=== PATIENT | male | born 1960 | race Caucasian/White ===

== ENCOUNTER 2017-03-10 15:12 | Inpatient (IN) ==
--- NOTE | 2017-03-10 15:19 | Emergency Department Note ---
Disposition Clinical Impression: Defibrillator discharge Disposition: Admitted As Inpatient Condition: Good Time of Disposition: 15:30 Arrhythmia/Palpitations HPI - General Chief Complaint: ED Arrhythmia/Palpitations Stated Complaint: defib fired Time Seen by Provider: 03/10/17 15:16 Source: patient, EMS Mode of arrival: EMS Limitations: no limitations Nursing Notes Reviewed: Yes Vital Signs Reviewed: Yes - History of Present Illness HPI Narrative: Patient is a 57-year-old male with past medical history of A. fib and currently on warfarin, CHF, COPD, diabetes, hypertension. He has a pacemaker defibrillator placed for A. fib. This was placed 8 years ago, [employer]. He presents today via EMS due to being shocked by his defibrillator around noon, approximately 3 hours prior to arrival. He states that the device played tones prior to being shocked. He said that just prior to arrival, the defibrillator played the same tones but did not shock him the second time. Denies any chest pain or shortness of breath prior to or after the event. Denies any other nausea, vomiting, fevers, diarrhea, abdominal pain. Currently asymptomatic. He was told in the past that if his defib played these tones, the battery was getting low. - Related Data Home Medications Medication Instructions Recorded Confirmed Albuterol Sulfate [Albuterol 2 puff IH Q6HR 02/11/15 03/11/15 Inhaler] Carvedilol [Coreg] 6.25 mg PO BIDWM 02/11/15 03/11/15 Digoxin [Lanoxin] 0.25 mg PO DAILY 02/11/15 03/11/15 Fenofibrate 145 mg DAILY 02/11/15 03/11/15 HYDROcodone/Acet 7.5/325 mg [Hunker 1 tab QID PRN 02/11/15 03/11/15 7.5-325 mg] Lisinopril [Zestril] 20 mg PO DAILY 02/11/15 03/11/15 Metformin HCl [Glucophage Xr] 750 mg PO DAILY 02/11/15 03/11/15 Montelukast [Singulair] 10 mg PO DAILY 02/11/15 03/11/15 QVAR 80 mcg 1 puff BID 02/11/15 03/11/15 Warfarin [Coumadin] 2 mg PO 1800 02/11/15 03/11/15 Previous Rx's Medication Instructions Recorded OxyCODONE/APAP 10/325 [Percocet 1 each PO Q6HR PRN #36 tablet 03/11/15 10/325 MG] Allergies Allergy/AdvReac Type Severity Reaction Status Date / Time atorvastatin [From Lipitor] AdvReac Vomiting Verified 03/10/17 15:18 codeine AdvReac Itching Verified 03/10/17 15:18 All systems ED: reviewed and negative except as stated. Constitutional: Denies: fever Cardiovascular: Denies: chest pain, palpitations Respiratory: Denies: cough, dyspnea Gastrointestinal: Denies: abdominal pain, nausea, vomiting, diarrhea, constipation, hematemesis, melena, hematochezia Genitourinary: Denies: dysuria Neurological: Denies: weakness, numbness, paresthesias Past Medical History - Past Medical History Attestation: Yes The following information was validated with the patient. Source: patient Medical history: Reports: asthma, atrial fibrillation, cardiomyopathy, CHF, hyperlipidemia, hypertension, myocardial infarction Surgical history: Reports: pacemaker/AICD Psychiatric history: Reports: no psych history - Social History Smoking Status: Former smoker Smokeless Tobacco Status: No Alcohol use: Reports: rarely Drug use: Reports: none Physical Exam - General Limitations: no limitations General appearance: alert, in no apparent distress - Head Head exam: atraumatic, normocephalic, normal inspection - Eye Eye exam: Present: normal appearance, PERRL, EOMI - ENT ENT exam: normal exam, normal oropharynx, mucous membranes moist - Neck Neck exam: Present: normal inspection, full ROM, trachea midline - Chest Chest inspection: Present: normal inspection, symmetric chest wall rise, other ( pacer/defib in chest has no overlying erythema, edema) - Respiratory Respiratory exam: Present: normal lung sounds bilaterally - Cardiovascular Cardiovascular exam: Present: regular rate, normal rhythm, normal heart sounds - Abdominal Exam Abdominal exam: Present: soft, Non-Tender. Absent: tenderness, distention, guarding, rebound, rigidity - Extremities Exam Extremities exam: Present: normal inspection, full ROM. Absent: tenderness, pedal edema - Neurological Exam Neurological exam: Present: alert, oriented X3 - Psychiatric Psychiatric exam: Present: normal affect, normal mood - Skin Skin exam: Present: warm, dry, intact, normal color Course Course Narrative: Patient hypertensive but otherwise vitals were within normal limits. Patient is currently in A. fib. He states that he is always in A. fib. His pacer/ defibrillator fired once prior to arrival while brushing his teeth. No symptoms prior to or after the event. We will obtain EKG, chest x-ray, basic blood work including CBC and BMP. Troponin not ordered due to likely false elevation from defibrillation shock. Again, patient is currently asymptomatic. We will interrogate the pacer/defibrillator while waiting on labs. 15:55 CBC shows hemoglobin within normal limits, mild elevation white blood cell count. Chest x-ray negative for any acute abnormality, leads appear to be in proper placement. EKG showed A. fib with no acute ST changes from previous EKG. 16:08 No major electrolyte abnormality on BMP. Interrogation rrt called me and discussed the report. There was one reported episode of V. fib/V. tach. However, the employee that I spoke with at [employer] states that according to some of the impedance readings that there could possibly be a fracture of one of the leads inside insulation itself. She did not feel that from the information obtained that there was an overt fracture of the entire lead. Chest x-ray shows no obvious fractures of leads. And they recommended that we place a magnet over the device to inactivated. I spoke with cardiology, Dr. Bhatti, and he requested one troponin ordered in the ER today and then an additional troponin order tomorrow. He did recommend admission to hospitalist with cardiology as a consult. No other recommendations made at this time. Vital Signs Temperature 98.3 F 03/10/17 15:15 Pulse Rate 84 03/10/17 15:15 Respiratory Rate 18 03/10/17 15:15 Blood Pressure 160/100 03/10/17 15:15 O2 Sat by Pulse Oximetry 96 03/10/17 15:15 Temperature 98.0 F 03/10/17 18:36 Pulse Rate 85 03/10/17 18:36 Respiratory Rate 18 03/10/17 18:36 Blood Pressure 140/91 03/10/17 18:36 O2 Sat by Pulse Oximetry 96 03/10/17 18:36 Oxygen Delivery Oxygen Delivery Room Air Arrhythmia/Palpitations - MDM Narrative Medical decision making narrative: CBC shows hemoglobin within normal limits, mild elevation white blood cell count. Chest x-ray negative for any acute abnormality, leads appear to be in proper placement. EKG showed A. fib with no acute ST changes from previous EKG. No major electrolyte abnormality on BMP. Interrogation rrt called me and discussed the report. There was one reported episode of V. fib/V. tach. However, the employee that I spoke with at [employer] states that according to some of the impedance readings that there could possibly be a fracture of one of the leads inside insulation itself. She did not feel that from the information obtained that there was an overt fracture of the entire lead. Chest x-ray shows no obvious fractures of leads. And they recommended that we place a magnet over the device to inactivated. I spoke with cardiology, Dr. Bhatti, and he requested one troponin ordered in the ER today and then an additional troponin order tomorrow. He did recommend admission to hospitalist with cardiology as a consult. No other recommendations made at this time. - Medical Records Medical records reviewed: Yes I reviewed the patient's medical records. - Lab Data Lab results reviewed: Yes I reviewed the patient's lab results. Result diagrams: 03/10/17 15:30 03/10/17 15:30 Lab Results 03/10/17 03/10/17 03/10/17 Range/Units 15:30 15:30 15:30 WBC 13.1 H (4.3-11.1) K/mcL RBC 5.90 H (4.19-5.50) M/mcL Hgb 16.3 (12.9-16.9) g/dL Hct 51.5 H (37.5-50.1) % MCV 87.3 (83.0-100.0) fL MCH 27.6 L (28.0-33.3) pg MCHC 31.7 (31.6-35.5) g/dL RDW 13.5 (11.5-14.5) % Plt Count 270 (140-400) K/mcL MPV 9.8 (9.4-12.4) fL Immature Gran % 0.5 (0-4) % Seg Neutrophils % 76.9 % Lymphocytes % 12.6 % Monocytes % 6.0 % Eosinophils % 3.6 % Basophils % 0.4 % Neutrophils # 10.1 H (1.6-8.9) K/mcL Lymphocytes # 1.7 (0.6-4.6) K/mcL Monocytes # 0.8 (0.0-1.3) K/mcL Eosinophils # 0.5 (0.0-0.6) K/mcL Basophils # 0.1 (0.0-0.2) K/mcL Sodium 134 L (136-145) mEq/L Potassium 4.7 (3.5-5.1) mEq/L Chloride 99 (98-107) mEq/L Carbon Dioxide 29 (23-29) mEq/L BUN 26 H (6-20) mg/dL Creatinine 1.01 (0.70-1.30) mg/dL Est GFR ( Amer) > 60 (> 60) Est GFR (Non-Af Amer) > 60 (> 60) BUN/Creatinine Ratio 26 (6-26) Glucose 110 H (70-105) mg/dL Calculated Osmolality 283 (280-300) Calcium 9.8 (8.6-10.3) mg/dL Troponin I 0.03 (< 0.04) ng/mL - Radiology Data Radiology results reviewed: Yes I reviewed the patient's radiology results. Chest X-Ray 03/10/17 15:18 IMPRESSION: No acute abnormality. D/ / 03/10/2017 16:04:46 Bruce Gordon MD / [facility] Interpreting Provider: Bruce Gordon MD - EKG Data EKG attestation: Yes I reviewed and interpreted this EKG. EKG results narrative: 03/10/17 at 15:17. A. fib. Rate 76. [place] 210. QRS 147. QTC 403. No acute ST changes compared to previous EKG on 01/01/15 S.B.A.R. - S.B.A.R. Situation: Demographics, MOA Background: Presenting Complaint, Relevant PMH, Meds, & Allergies Assessment: Vital Signs, Course and respsone to treatment, Exam Concerns, Patient/Family Expectation, Pertinant Lab Results, Outstanding Labs Recommendation: Barrier(s) to disposition, Recommendation based on pending studies, treatments, or consults S.B.A.R. Report Given to: Dr. Camryn Morales Repor Time: 16:54 Attestation Statement - Attestation Attestation: I examined this patient and my medical decision-making was reviewed with the Resident Physician. I agree with the documented findings, disposition and treatment plan as described except to the extent set forth below. Findings consistent with pacemaker failure. The patient describes a pacemaker firing at home. There is concern for lead fracture. Discussed case with on-call rotary cutter feeder. Recommending placing magnet over pacer, admitting for telemetry and pacemaker replacement.
[2017-03-10 15:37] LABS: Basophils # 0.1 K/mcL (0.0-0.2); Basophils % 0.4 %; Eosinophils # 0.5 K/mcL (0.0-0.6); Eosinophils % 3.6 %; Hematocrit 51.5 % (37.5-50.1); Hemoglobin 16.3 g/dL (12.9-16.9); Immature Granulocytes % 0.5 % (0-4); Lymphocytes # 1.7 K/mcL (0.6-4.6); Lymphocytes % 12.6 %; Mean Corpuscular HGB Conc 31.7 g/dL (31.6-35.5); Mean Corpuscular Hemoglobin 27.6 pg (28.0-33.3); Mean Corpuscular Volume 87.3 fL (83.0-100.0); Mean Platelet Volume 9.8 fL (9.4-12.4); Monocytes # 0.8 K/mcL (0.0-1.3); Neutrophils # 10.1 K/mcL (1.6-8.9); Platelet Count 270 K/mcL (140-400); Red Cell Distribution Width 13.5 % (11.5-14.5); Segmented Neutrophils % 76.9 %
[2017-03-10 15:58] LABS: BUN/Creatinine Ratio 26 (6-26); Blood Urea Nitrogen 26 mg/dL (6-20); Calcium 9.8 mg/dL (8.6-10.3); Carbon Dioxide 29 mEq/L (23-29); Chloride 99 mEq/L (98-107); Glucose 110 mg/dL (70-105); Osmolality,Calculated 283 (280-300); Potassium 4.7 mEq/L (3.5-5.1); Sodium 134 mEq/L (136-145); eGFR For African Americans > 60 (> 60); eGFR For Non-African Americans > 60 (> 60)
[2017-03-10] MEDS ORDERED: Naloxone 0.4 MG/ML INJ IVP PRN (17:39)
[2017-03-10] MEDS ORDERED: Acetaminophen 325 MG TABLET PO PRN (17:39)
--- NOTE | 2017-03-10 17:50 | Internal Med History&Physical ---
Date of Encounter: 03/10/17 Time of Encounter: 17:45 Assessment and Plan (1) Defibrillator discharge Current visit: Yes Status: Acute One episode prior to arrival Monitor on tele Cardiology eval a.m Check Mag, repeat troponin No chest pain at this time and prior to presentation. Obtain ECHO Patient is full code (2) HTN (hypertension) Current visit: Yes Status: Chronic Uncontrolled at time of presentation resume home meds Ad hydralazine prn SBP >160 Qualifiers: Hypertension type: essential hypertension Qualified Code(s): I10 - Essential (primary) hypertension (3) Afib Current visit: Yes Status: Chronic chronic, with ICD On Warfarin, digoxin check digoixn level, INR Continue home meds Hold Warfarin for possible procedure, place on heparin Qualifiers: Atrial fibrillation type: chronic Qualified Code(s): I48.2 - Chronic atrial fibrillation (4) Diabetes mellitus Current visit: Yes Status: Chronic FS ACHS Sliding scale insulin ADA diet Qualifiers: Diabetes mellitus type: type 2 Diabetes mellitus complication status: without complication Diabetes mellitus detention insulin use: without detention use Qualified Code(s): E11.9 - Type 2 diabetes mellitus without complications (5) Hx of polymyalgia rheumatica Current visit: Yes Status: Chronic continue home meds supposedly on steroids intermittently not on steroids per home meds at this time (6) Leukocytosis Current visit: Yes Status: Chronic chronic, has been seen by hematology for same in the past, said to be due to intermittent steroid use for PMR Patient denies fever or chills, no resp symptoms, no focal points of infection Continue to monitor Qualifiers: Leukocytosis type: unspecified Qualified Code(s): D72.829 - Elevated white blood cell count, unspecified Internal Medicine - H&P: HPI Chief complaint: My ICD fired Admitted From: Home Plans for Post Hospital Care: Home History of present illness: Mr. Govea is a 57 year old male with PMH of CAD s/p [place], Afib with ICD on Digoxin and Warfarin, HTN, DM, PMR He presented to the ER 3hrs after his ICE fired. The patient states he was at rest and not operating any electronics or devices, he did not have preceding chest pain, shortness of breath, nausea, vomiting, diaphoresis, dizziness. He states his ICD played a tone prior to firing and the tones usually come on when the battery is weak. He reports he did not have any illicit drug use, he denies medication non- compliance His ICD was first placed in 2009 after WI with arrythmia, it was replaced in 2014 for unknown reason, he follows up with cardiology here at [facility] He denies fever, chills, cough, no abdominal symptoms, no changes in his bowel or urinary habits. Work up in [facility] shows leukocytosis, chem is unremarkable and troponin is negative initially. EKG showed Afib CXR did not show any acute findings The device was interrogated by a [employer] staff and per EMR there might be an occult lead fracture which is not evident on CXR, there might have been an episode of Vfib/Vtach The patient is asymptomatic at this time, cardiology was consulted by ER Past Med Surg Social Fam HX - Past Medical History Medical history: asthma, atrial fibrillation, cardiomyopathy, CHF, hyperlipidemia, hypertension, myocardial infarction Psychiatric history: no psych history - Past Surgical History Surgical History: pacemaker/AICD - Social History Smoking Status: Former smoker Smokeless Tobacco Status: No Alcohol use: rarely Drug use: none Internal Medicine - H&P: Meds Albuterol Sulfate [Albuterol Inhaler] 2 puff IH Q6HR 02/11/15 [History] Carvedilol [Coreg] 6.25 mg PO BIDWM 02/11/15 [History] Digoxin [Lanoxin] 0.25 mg PO DAILY 02/11/15 [History] Fenofibrate 145 mg DAILY 02/11/15 [History] HYDROcodone/Acet 7.5/325 mg [Elsa 7.5-325 mg] 1 tab QID PRN 02/11/15 [History] Lisinopril [Zestril] 20 mg PO DAILY 02/11/15 [History] Metformin HCl [Glucophage Xr] 750 mg PO DAILY 02/11/15 [History] Montelukast [Singulair] 10 mg PO DAILY 02/11/15 [History] QVAR 80 mcg 1 puff BID 02/11/15 [History] Warfarin [Coumadin] 2 mg PO 1800 02/11/15 [History] OxyCODONE/APAP 10/325 [Percocet 10/325 MG] 1 each PO Q6HR PRN #36 tablet [Rx] 3 Allergy/AdvReac Type Severity Reaction Status Date / Time atorvastatin [From Lipitor] AdvReac Vomiting Verified 03/10/17 15:18 codeine AdvReac Itching Verified 03/10/17 15:18 All Systems PM: A 10-system review of systems was performed and is negative for pertinent findings except as documented above in the HPI. - Constitutional Constitutional: no chills, no fever(s), no night sweats - EENT Eyes: no change in vision, no discharge, no pain, no photophobia Nose, mouth and throat: no dysphagia, no nasal discharge, no neck pain, no sore throat - Cardiovascular Cardiovascular ROS IM: as per HPI - Respiratory Respiratory: as per HPI - Gastrointestinal Gastrointestinal: no abdominal pain, no diarrhea, no hematemesis, no hematochezia, no melena, no nausea, no vomiting - Musculoskeletal Musculoskeletal ROS IM: no numbness, no tingling - Integumentary Integumentary IM: no rash, no unusual bruising - Neurological Neurological ROS: no confusion, no convulsions, no focal weakness, no numbness, no tingling, no tremor(s) - Hematologic/Lymphatic Hematologic/Lymphatic: no easy bruising - Constitutional Vitals: Temp Pulse Resp BP Pulse Ox 98.3 F 84 16 140/98 96 03/10/17 15:15 03/10/17 15:15 03/10/17 17:33 03/10/17 17:33 03/10/17 15:15 General appearance: Present: A&O X 3, pleasant, no acute distress, obese - Head Head exam: Present: atraumatic, normocephalic - Eye Eye exam: Present: PERRL, conjuntiva pink, sclera anicteric Pupils: Present: PERRL - Neck Neck exam general surgery: Present: supple, trachea midline. Absent: lymphadenopathy - Respiratory Respiratory exam: Present: CTAB. Absent: accessory muscle use, rales, rhonchi, wheezes Additional comments: R chest wall with ICD, no pocket tenderness, no chest wall tenderness - Cardiovascular Cardiovascular exam: Present: irregular rhythm, +S1, +S2. Absent: diastolic murmur, gallop, rubs, systolic murmur - GI/Abdominal GI/Abdominal exam: Present: normal bowel sounds, soft, no peritoneal signs. Absent: distended, tenderness - Extremities Exam Extremities exam: Present: warm, radial pulses palpable and symmetrical. Absent : calf tenderness, cyanotic, pedal edema - Neurological Exam Neurological exam: Present: alert, CN II-XII intact, oriented X3, no focal deficits. Absent: pronater drift, facial droop, speech deficit - Skin Skin exam: Present: dry, intact Internal Med - H&P Results - Labs CBC & Chem 7: 03/10/17 15:30 03/10/17 15:30
[2017-03-10 18:23] LABS: INR 2.5; Prothrombin Time 27.4 Seconds (9.4-12.1)
[2017-03-10] MEDS: *HR* HYDROcodone/Acet 7.5/325 mg TABLET PO PRN (18:47)
[2017-03-10] MEDS: clonazePAM 0.5 MG TABLET PO PRN (21:12)
[2017-03-11] MEDS: *HR* HYDROcodone/Acet 7.5/325 mg TABLET PO PRN ×4 (03:13→21:45)
[2017-03-11 05:01] LABS: Basophils # 0.1 K/mcL (0.0-0.2); Basophils % 0.5 %; Eosinophils # 0.5 K/mcL (0.0-0.6); Eosinophils % 4.1 %; Hematocrit 48.1 % (37.5-50.1); Hemoglobin 15.1 g/dL (12.9-16.9); Immature Granulocytes % 0.4 % (0-4); Lymphocytes # 2.2 K/mcL (0.6-4.6); Mean Corpuscular HGB Conc 31.4 g/dL (31.6-35.5); Mean Corpuscular Hemoglobin 27.6 pg (28.0-33.3); Mean Corpuscular Volume 87.8 fL (83.0-100.0); Mean Platelet Volume 9.8 fL (9.4-12.4); Monocytes # 0.8 K/mcL (0.0-1.3); Monocytes % 6.9 %; Platelet Count 238 K/mcL (140-400); Red Blood Count 5.48 M/mcL (4.19-5.50); Red Cell Distribution Width 13.5 % (11.5-14.5); Segmented Neutrophils % 69.1 %
[2017-03-11 05:06] LABS: INR 2.3; Prothrombin Time 25.6 Seconds (9.4-12.1)
[2017-03-11 05:27] LABS: BUN/Creatinine Ratio 27 (6-26); Blood Urea Nitrogen 25 mg/dL (6-20); Calcium 9.6 mg/dL (8.6-10.3); Carbon Dioxide 28 mEq/L (23-29); Chloride 102 mEq/L (98-107); Glucose 124 mg/dL (70-105); Osmolality,Calculated 290 (280-300); Potassium 4.1 mEq/L (3.5-5.1); Sodium 137 mEq/L (136-145); eGFR For African Americans > 60 (> 60); eGFR For Non-African Americans > 60 (> 60)
[2017-03-11] MEDS: Fenofibrate 54 MG TABLET PO SCH (07:38)
[2017-03-11] MEDS: Lisinopril 20 MG TABLET PO SCH (07:39)
[2017-03-11] MEDS: *HR* Digoxin 0.25 MG TABLET PO SCH (07:39)
--- NOTE | 2017-03-11 08:49 | Internal Med Progress Note ---
Date of Encounter: 03/11/17 Time of Encounter: 08:49 - Subjective Interval history: History of present illness: The patient is a 57 year old man with PMH of CAD s/p [place], Afib with an ICD on Digoxin and Warfarin, HTN, DM, PMR He presented to the ER 3hrs after his ICD fired. He was admitted for cardiology consultatnd observation. [employer] contactefor interogation of the device showed lead integrity alert for RV oversensing, posb lead fracture. EP consult for tomorrow. Physical Exam: Constitutional Constitutional: no chills, no fever(s), no night sweats - EENT Eyes: no change in vision, no discharge, no pain, no photophobia Nose, mouth and throat: no dysphagia, no nasal discharge, no neck pain, no sore throat - Cardiovascular Cardiovascular ROS IM: as per HPI - Respiratory Respiratory: as per HPI - Gastrointestinal Gastrointestinal: no abdominal pain, no diarrhea, no hematemesis, no hematochezia, no melena, no nausea, no vomiting - Musculoskeletal Musculoskeletal ROS IM: no numbness, no tingling - Integumentary Integumentary IM: no rash, no unusual bruising - Neurological Neurological ROS: no confusion, no convulsions, no focal weakness, no numbness, no tingling, no tremor(s) - Hematologic/Lymphatic Hematologic/Lymphatic: no easy bruising Assessment and Plan (1) Defibrillator discharge Continue telemetry Cardiology / EP eval a.m No chest pain (2) HTN (hypertension) Uncontrolled at time of presentation resume home meds and add hydralazine prn SBP >160 (3) Afib chronic, with ICD On Warfarin, digoxin check digoixn level, INR Continue home meds Hold Warfarin for possible procedure, place on heparin (4) Diabetes mellitus FS ACHS Sliding scale insulin ADA diet (5) Hx of polymyalgia rheumatica continue home meds supposedly on steroids intermittently not on steroids per home meds at this time - Constitutional Vitals: Temp Pulse Resp BP Pulse Ox 97.6 F 62 19 127/76 92 03/11/17 07:34 03/11/17 07:43 03/11/17 07:34 03/11/17 07:34 03/11/17 07:34 General appearance: Present: A&O X 3, pleasant, no acute distress, obese - Head Head exam: Present: atraumatic, normocephalic - Eye Eye exam: Present: PERRL, conjuntiva pink, sclera anicteric Pupils: Present: PERRL - Neck Neck exam general surgery: Present: supple, trachea midline. Absent: lymphadenopathy - Respiratory Respiratory exam: Present: CTAB. Absent: accessory muscle use, rales, rhonchi, stridor, wheezes - Cardiovascular Cardiovascular exam: Present: RRR, +S1, +S2. Absent: bradycardia, diastolic murmur, gallop, rubs, systolic murmur - GI/Abdominal GI/Abdominal exam: Present: normal bowel sounds, soft, no peritoneal signs. Absent: distended, tenderness - Extremities Exam Extremities exam: Present: warm, radial pulses palpable and symmetrical. Absent : calf tenderness, cyanotic, pedal edema - Neurological Exam Neurological exam: Present: CN II-XII intact, oriented X3, no focal deficits. Absent: pronater drift, facial droop, speech deficit - Skin Skin exam: Present: dry, intact Internal Medicine: Result - Labs CBC & Chem 7: 03/11/17 04:30 03/11/17 04:30 Labs: Short CBC 03/11/17 Range/Units 04:30 WBC 11.6 H (4.3-11.1) K/mcL Hgb 15.1 (12.9-16.9) g/dL Hct 48.1 (37.5-50.1) % Plt Count 238 (140-400) K/mcL Neutrophils # 8.0 (1.6-8.9) K/mcL BMP 03/11/17 04:30 Sodium 137 Potassium 4.1 Chloride 102 Carbon Dioxide 28 BUN 25 H Creatinine 0.92 Glucose 124 H Calcium 9.6 Cardiac Enzymes 03/11/17 Range/Units 04:30 Troponin I < 0.03 (< 0.04) ng/mL - ABG Interpretation ABG results: PT/INR, D-dimer PT 25.6 Seconds (9.4-12.1) H 03/11/17 04:30 Consult Discharge Plan - Plan Referrals: Mic Chadwick MD [Primary Care Provider] -
--- NOTE | 2017-03-11 14:29 | Event Note ---
Date of Encounter: 03/11/17 Time of Encounter: 14:20 - Cardiology Event Note Seen and examined. Patient reports ICD shock x1 yesterday while brushing his teeth. Reports ICD beeping/tones prior to shock. Device check reviewed with --lead integrity alert for RV oversensing, posb lead fracture. Increase in optivol noted. Patient euvolemic upon exam, reports normal state of health prior to event. Discussed with patient who agrees with plan. Recommend EP consult, will be completed 03/12/17. Impressions Chest X-Ray 03/10/17 15:18 IMPRESSION: No acute abnormality. D/ / 03/10/2017 16:04:46 Bruce Gordon MD / [facility] Interpreting Provider: Bruce Gordon MD
[2017-03-12] MEDS: clonazePAM 0.5 MG TABLET PO PRN ×2 (00:02→16:21)
[2017-03-12] MEDS: *HR* HYDROcodone/Acet 7.5/325 mg TABLET PO PRN ×3 (04:14→16:21)
[2017-03-12 07:19] LABS: Basophils # 0.1 K/mcL (0.0-0.2); Basophils % 0.6 %; Eosinophils # 0.5 K/mcL (0.0-0.6); Eosinophils % 3.8 %; Hematocrit 46.8 % (37.5-50.1); Hemoglobin 14.6 g/dL (12.9-16.9); Immature Granulocytes % 0.4 % (0-4); Lymphocytes # 1.8 K/mcL (0.6-4.6); Lymphocytes % 13.8 %; Mean Corpuscular HGB Conc 31.2 g/dL (31.6-35.5); Mean Corpuscular Hemoglobin 27.8 pg (28.0-33.3); Mean Corpuscular Volume 89.1 fL (83.0-100.0); Mean Platelet Volume 10.1 fL (9.4-12.4); Monocytes # 0.9 K/mcL (0.0-1.3); Monocytes % 7.3 %; Neutrophils # 9.4 K/mcL (1.6-8.9); Platelet Count 225 K/mcL (140-400); Red Blood Count 5.25 M/mcL (4.19-5.50); Red Cell Distribution Width 14.1 % (11.5-14.5); Segmented Neutrophils % 74.1 %
[2017-03-12] MEDS: *HR* Digoxin 0.25 MG TABLET PO SCH (08:34)
[2017-03-12] MEDS: Lisinopril 20 MG TABLET PO SCH (08:34)
[2017-03-12] MEDS: Fenofibrate 54 MG TABLET PO SCH (08:34)
[2017-03-12 09:52] LABS: BUN/Creatinine Ratio 26 (6-26); Blood Urea Nitrogen 30 mg/dL (6-20); Calcium 9.1 mg/dL (8.6-10.3); Carbon Dioxide 29 mEq/L (23-29); Chloride 101 mEq/L (98-107); Glucose 131 mg/dL (70-105); Osmolality,Calculated 290 (280-300); Potassium 4.3 mEq/L (3.5-5.1); Sodium 136 mEq/L (136-145); eGFR For African Americans > 60 (> 60); eGFR For Non-African Americans > 60 (> 60)
--- NOTE | 2017-03-12 10:06 | Electrophysiology Consult Note ---
Addendum entered and electronically signed by Chicho Pappas CNP 03/12/17 11:08 : Discussed and reviewed with Dr. Altaf Houston, recommendations to transfer to [facility] for lead extraction and replacement. Initial insertion at [facility]. Patient and family verbalized understanding and agreed with plan. Continue to hold Coumadin for now. All questions answered. Patient will f/u after hospital stay. Re- consult PRN. Original Note: <Chicho Pappas - Last Filed: 03/12/17 10:06> Date of Encounter: 03/12/17 Time of Encounter: 10:00 Assessment and Plan (1) Defibrillator discharge Current Visit: Yes Status: Acute Per Cardiology: Hx of NICMP with BiVICD. Reports hx of shocks x 2 in the past with "sawing wood ". No recent issues until Sunday am with "beeping noises" starting and received 1 shock while brushing teeth. Denies any recent trauma or falls. ICD interrogation noted and reviewed with Dr. Altaf Houston. Evaluating for possible lead fracture and may need extraction/replacement. Magnet currently taped to chest. (2) Afib Current Visit: Yes Status: Chronic Per Cardiology: Known hx of chronic afib. On BB and digoxin. Regarding long-term AC, on coumadin, however currently on hold for possible extraction. INR 2.3 yesterday. Check INR. Qualifiers: Atrial fibrillation type: chronic Qualified Code(s): I48.2 - Chronic atrial fibrillation Discussion w patient/family: The assessment and plan as outlined above was discussed with the patient and/or family members who expressed understanding and agreement. All questions were answered. Thank you for involving us in the care of your patient. Please call with any questions. History of Present Illness Consult date: 03/12/17 Requesting physician: Aleyda Hong Consult reason: ICD Shock and Lead Fracture Chief complaint: ICD Shock History of present illness: Mr. Govea is a 57 year old male with a relevant past medical history of left bundle branch block, chronic atrial fibrillation on Coumadin and followed by PCP , BiV ICD, nonischemic cardiomyopathy, hypertension, hyperlipidemia. Electrophysiology consult for ICD shock and concerns of lead fracture. Patient reports ICD shock x1 Sunday am while brushing his teeth. Reports ICD beeping/tones prior to shock. Patient reports normal state of health prior to event. He denies any chest pain, short of breath, palpitations. Denies any recent infectious process. He denies any recent trauma or falls. Reports heard beeping noise during this hospital stay as well and currently has magnet taped to his right anterior chest wall. Past Med Surg Social Fam HX - Past Medical History Attestation: Yes The following information was validated with the patient. Source: patient, old records reviewed, obtained from family Medical history: asthma, atrial fibrillation, cardiomyopathy, CHF, hyperlipidemia, hypertension, myocardial infarction Psychiatric history: no psych history - Past Surgical History Surgical History: pacemaker/AICD - Social History Smoking Status: Former smoker Smokeless Tobacco Status: No Alcohol use: rarely Drug use: none Medications and Allergies Albuterol Sulfate [Albuterol Inhaler] 2 puff IH Q6HR 02/11/15 [History] Beclomethasone Diprop 80mcg [Qvar 80 mcg] 1 puff IH BID #0 02/11/15 [History] Digoxin [Lanoxin] 0.25 mg PO DAILY 02/11/15 [History] HYDROcodone/Acet 7.5/325 mg [Hulbert 7.5-325 mg] 1 tab QID PRN 02/11/15 [History] Metformin HCl [Glucophage Xr] 750 mg PO DAILY 02/11/15 [History] Montelukast [Singulair] 10 mg PO DAILY 02/11/15 [History] Warfarin [Coumadin] 2 mg PO 1800 02/11/15 [History] Allopurinol [Zyloprim 100 MG] 100 mg PO DAILY 03/11/17 [History] Carvedilol [Coreg] 25 mg PO BID 03/11/17 [History] Fenofibrate [Tricor] 54 mg PO DAILY 03/11/17 [History] Lisinopril [Zestril] 5 mg PO DAILY 03/11/17 [History] 3 Allergy/AdvReac Type Severity Reaction Status Date / Time atorvastatin [From Lipitor] AdvReac Vomiting Verified 03/10/17 15:18 codeine AdvReac Itching Verified 03/10/17 15:18 All Systems Review: A 10-system review of systems was performed and is negative for pertinent findings except as documented above in the HPI. - Cardiovascular Cardiovascular: as per HPI, other (ICD shock x 1) Physical Examination Vital Signs, Last 4 Hours Temp Pulse Resp BP Pulse Ox 03/12/17 08:40 62 01/29/18 07:24 97.6 F 69 20 115/61 94 General: Conversant, No Apparent Distress HEENT: Atraumatic, Normocephaly, Mucus Membranes Moist Neck: No JVD, Normal carotid pulses Cardiac: Reg Rate and Rhythm, Normal S1 and S2, No Murmur Lungs: Normal Breath Sounds, No Wheeze, Rales, Rhonchi Neuro: Alert and responsive, No focal deficits noted Abdomen: Soft, Non-Tender Skin: No rashes noted on visualized skin, Other (Magnet attached to chest over ICD) Musculoskeletal: No Chest Wall Tenderness Extremities: No Clubbing, No Cyanosis, No Edema, Normal Pulses Results 03/12/17 06:37 03/12/17 06:37 Lab Results Laboratory Tests 03/10/17 03/11/17 03/11/17 15:30 04:30 04:30 INR 2.3 Troponin I 0.03 < 0.03 ITS Impressions Chest X-Ray 03/10/17 15:18 IMPRESSION: No acute abnormality. D/ / 03/10/2017 16:04:46 Bruce Gordon MD / [facility] Interpreting Provider: Bruce Gordon MD Active Medications Acetaminophen (Tylenol) 650 mg PO Q6HR PRN PRN Reason: Mild Pain (1-3) Stop: 09/09/17 17:40 Hydrocodone Bitart/Acetaminophen (Hulbert 7.5-325 Mg) 1 tab PO QID PRN PRN Reason: Moderate Pain Stop: 09/09/17 17:41 Last Admin: 03/12/17 10:17 Dose: 1 tab Carvedilol (Coreg) 6.25 mg PO BIDWM DIAN PRN Reason: Protocol Stop: 09/10/17 08:01 Last Admin: 03/12/17 08:34 Dose: 6.25 mg Clonazepam (Klonopin) 0.5 mg PO BID PRN PRN Reason: Anxiety Stop: 09/09/17 20:43 Last Admin: 03/12/17 00:02 Dose: 0.5 mg Digoxin (Lanoxin) 0.25 mg PO DAILY DIAN Stop: 09/10/17 09:01 Last Admin: 03/12/17 08:34 Dose: 0.25 mg Fenofibrate (Tricor) 162 mg PO DAILY DIAN Stop: 09/10/17 09:01 Last Admin: 03/12/17 08:34 Dose: 162 mg Lisinopril (Zestril) 20 mg PO DAILY DIAN PRN Reason: Protocol Stop: 09/10/17 09:01 Last Admin: 03/12/17 08:34 Dose: 20 mg Montelukast Sodium (Singulair) 10 mg PO DAILY DIAN Stop: 09/10/17 09:01 Last Admin: 03/12/17 08:34 Dose: 10 mg Naloxone HCl (Narcan) 0.4 mg IVP Q2MIN PRN PRN Reason: Opioid Reversal Stop: 09/09/17 17:40 - EKG Interpretation EKG results cardiology: other Consult Discharge Plan - Plan Referrals: Mic Chadwick MD [Primary Care Provider] - (Patient is going to [facility] no PCP appointment needed) <Altaf Houston - Last Filed: 03/12/17 16:13> Date of Encounter: 03/12/17 - Attending Attestation I have personally performed a face to face evaluation on this patient. I have reviewed and agree with the care plan. History and Exam by me shows: ICD shock appears to be secondary to lead fracture. There is noise noted on lead for several days and today the lead impdence is elevated. Will need referral to center that can do lead extraction and replacement. Assessment and Plan Discussion w patient/family: The assessment and plan as outlined above was discussed with the patient and/or family members who expressed understanding and agreement. All questions were answered. Thank you for involving us in the care of your patient. Please call with any questions. History of Present Illness History of present illness: Mr. Govea is a 57 year old male All Systems Review: A 10-system review of systems was performed and is negative for pertinent findings except as documented above in the HPI. Results 03/12/17 06:37 03/12/17 06:37 Lab Results 03/12/17 03/12/17 03/12/17 06:37 06:37 10:37 WBC 12.7 H Hgb 14.6 Hct 46.8 Plt Count 225 INR 2.0 Sodium 136 Potassium 4.3 Chloride 101 Carbon Dioxide 29 BUN 30 H Creatinine 1.15 Glucose 131 H Calcium 9.1
[2017-03-12 10:58] LABS: Prothrombin Time 21.3 Seconds (9.4-12.1)
--- NOTE | 2017-03-12 11:52 | Discharge Summary ---
Date of Encounter: 03/12/17 Time of Encounter: 11:51 - Discharge Medications Home Medications: Albuterol Sulfate [Albuterol Inhaler] 2 puff IH Q6HR 02/11/15 [History] Beclomethasone Diprop 80mcg [Qvar 80 mcg] 1 puff IH BID #0 02/11/15 [History] Digoxin [Lanoxin] 0.25 mg PO DAILY 02/11/15 [History] HYDROcodone/Acet 7.5/325 mg [Arab 7.5-325 mg] 1 tab QID PRN 02/11/15 [History] Metformin HCl [Glucophage Xr] 750 mg PO DAILY 02/11/15 [History] Montelukast [Singulair] 10 mg PO DAILY 02/11/15 [History] Warfarin [Coumadin] 2 mg PO 1800 02/11/15 [History] Allopurinol [Zyloprim 100 MG] 100 mg PO DAILY 03/11/17 [History] Carvedilol [Coreg] 25 mg PO BID 03/11/17 [History] Fenofibrate [Tricor] 54 mg PO DAILY 03/11/17 [History] Lisinopril [Zestril] 5 mg PO DAILY 03/11/17 [History] Allergies/Adverse Reactions: 3 Allergy/AdvReac Type Severity Reaction Status Date / Time atorvastatin [From Lipitor] AdvReac Vomiting Verified 03/10/17 15:18 codeine AdvReac Itching Verified 03/10/17 15:18 Date of admission: 03/10/17 17:43 Primary care physician: Mic Chadwick MD Consults: 03/11/17 09:46 Consult to Cardiology [CONS] Routine Comment: Consulting Provider: [facility] [place] Reason for Consult: ICD misfiring Time Notified: 09:48 Call Completed: Yes 03/11/17 14:26 Consult to Electrophysiology (EP) [CONS] Routine Consulting Provider: Electrophysiology [facility] Reason for Consult: posb lead fracture. ICD fire Call Completed: Yes Discharging clinician: Martín Kan - Patient Status Disposition: Transfer Critical Access Hosp Condition: Good - Discharge Instructions Follow Up With: Mic Chadwick MD [Primary Care Provider] - (Patient is going to [facility] no PCP appointment needed) Interval History: The patient is a 57 year old man with PMH of CAD s/p [place], Afib with an ICD on Digoxin and Warfarin, HTN, DM, PMR He presented to the ER 3hrs after his ICD fired. He was admitted for cardiology consultation and observation. The [employer] medical collections representative was contacted for interogation of the device. It showed showed lead integrity alert for RV oversensing, posb lead fracture. Cardiolog and EP both reviewed the data and determined a pacemaker lead was indeed broken and would need removed. The defibrillator was shut off. he remains hemodynamially stable and in no acute distress. [facility] was contacted and he will be transfered [facility] for removal of the leads. Hospital course: Mr. Govea is a 57 year old male Time spent discussing smoking cessation with patient: more than 10 minutes - Time Spent with Patient Total time spent providing and/or coordinating discharge services: Greater than 30 minutes - Constitutional Vitals: Temp Pulse Resp BP Pulse Ox 98.0 F 77 18 121/74 92 03/12/17 11:10 03/12/17 11:10 03/12/17 11:10 03/12/17 11:10 03/12/17 11:10 General appearance: Present: A&O X 3, pleasant, no acute distress, obese - Head Head exam: Present: atraumatic, normocephalic - Eye Eye exam: Present: PERRL, conjuntiva pink, sclera anicteric Pupils: Present: PERRL - Neck Neck exam general surgery: Present: supple, trachea midline. Absent: lymphadenopathy - Respiratory Respiratory exam: Present: CTAB. Absent: accessory muscle use, chest wall tenderness, decreased breath sounds, rales, respiratory distress, rhonchi, stridor, wheezes - Cardiovascular Cardiovascular exam: Present: RRR, +S1, +S2. Absent: diastolic murmur, gallop, rubs, systolic murmur - GI/Abdominal GI/Abdominal exam: Present: normal bowel sounds, soft, no peritoneal signs. Absent: distended, tenderness - Extremities Exam Extremities exam: Present: warm, radial pulses palpable and symmetrical. Absent : calf tenderness, cyanotic, pedal edema - Expanded Lower Extremities Exam Ankle exam: Present: normal inspection. Absent: swelling - Neurological Exam Neurological exam: Present: CN II-XII intact, oriented X3, no focal deficits. Absent: pronater drift, facial droop, speech deficit - Psychiatric Psychiatric exam: Present: normal affect, normal mood - Skin Skin exam: Present: dry, intact
[2017-03-12 16:26] VITALS: BP 136/73
--- NOTE | 2017-03-13 17:09 | Electrocardiograph Report ---
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
== END 2017-03-12 18:24 | disposition other institution (70) | DRG 206 ==
LOC: EMEROO 15:12 → 3BNU 15:12 → 2NNU 17:42
PROVIDERS: ADMIT Internal Medicine; ATTEND Registered Nurse